=== PATIENT | male | born 1925 | race Caucasian/White ===

== ENCOUNTER 2016-08-31 22:12 | Observation (INO) | payer OTHER ==
--- NOTE | ~2016-08-31 | HP ---
History And Physical [place] [id number] [facility] [place]. [address] NAME: BOOM DUARTE : [birth year] STATUS : ADM IN [facility]#: [id number] AGE: 89 ADM/REG DATE : 09/01/16 MR#: [id number] REPORT SERV DATE: 09/01/16 DICTATED BY: GUANACO MARK DATE: 09/01/16 REPORT STATUS : Draft TRANSCRIBED BY: MODL DATE: 09/01/16 DATE OF ADMISSION: 09/01/2016 HISTORY OF PRESENT ILLNESS: This is a quite healthy 89-year-old man without prior history of bradycardia or cardiovascular disease. He developed the acute onset of nausea followed by several bouts of emesis. EMS was summoned. He felt weak. In the ambulance, he was noted to be sinus bradycardia in the 30s. There is no evidence of AV block. He was given IV fluids and observed in the intensive care unit overnight. His nausea has resolved. He has no abdominal pain. His heart rate shows sinus bradycardia in the mid 50s. He is not having any chest pain. PAST MEDICAL HISTORY: Gastroesophageal reflux disease. ALLERGIES: NO KNOWN DRUG ALLERGIES. MEDICATIONS: [id number] proton pump inhibitor. FAMILY HISTORY: There is no family history of early coronary artery disease. REVIEW OF SYSTEMS: A complete review of systems was obtained, which is negative in detail except as mentioned above in the HPI. PHYSICAL EXAMINATION: VITAL SIGNS: Blood pressure 140/70, heart rate of 60, respiratory rate of 14. GENERAL: Comfortable in no acute distress. HEENT: Anicteric. No xanthelasma. Lips without cyanosis. NECK: No JVD. Carotids 2+ and symmetric. No carotid bruits. LUNGS: CTA bilaterally. No wheezes or rhonchi. No accessory muscle use. COR: RRR. Normally placed PMI. Normal S1 and S2. No murmurs, rubs or gallops. ABD: Soft, nontender, nondistended. Normal bowel sounds. No abdominal bruits. EXT: No clubbing, cyanosis or edema 2+ and symmetric distal pulses. SKIN: Warm. Dry. No venous stasis changes. MS: No kyphosis. NEURO/PSYCH: Oriented x3. No anxiety or depression. DATA: Laboratory studies: White count of 10.5, creatinine of 1.0, potassium of 3.8. BNP of 63. Troponin of less than 0.02. EK-lead EKG shows sinus bradycardia. OR interval is normal at 172, right bundle- branch block pattern is noted. Occasional premature atrial contractions noted. IMPRESSION: Mr. Duarte is an 89-year-old man quite healthy given his age, who presents with what I think is a GI virus with nausea and vomiting and some mild dehydration. He developed bradycardia likely related to vagal influences. His bradycardia has largely resolved. He is currently asymptomatic. I have recommended discharge home and follow up with primary History And Physical [address] [address] NAME: BOOM DUARTE : [birth year] STATUS : ADM IN [facility]#: [id number] AGE: 89 ADM/REG DATE : 09/01/16 MR#: [id number] REPORT SERV DATE: 09/01/16 DICTATED BY: GUANACO MARK DATE: 09/01/16 REPORT STATUS : Draft TRANSCRIBED BY: DEE DATE: 09/01/16 care physician. ARIC/DEE Guanaco Mark M.D. / [id number] CC: Raj Camarillo M.D.
[2016-08-31 22:10] LABS: ASCORBIC ACID (UR NOT ORDER) NEG (NEG); BILIRUBIN, URINE NEGATIVE (NEG); ER URINALYSIS TAT 0 Hrs 08 Mins; KETONE, URINE TRACE MG/DL (NEG); LEUKOCYTE ESTERASE(NOT OR NEG (NEG); NITRITE (URINE) NEG (NEG); WBC (NOT ORDERED) (RFLEX) < 1 (0-5)
[2016-08-31 23:39] LABS: BASOPHILS 0.3 %; BASOPHILS ABSOLUTE 0.03 10/3/uL (0.0-0.16); EOSINOPHILS 0.3 %; EOSINOPHILS ABSOLUTE 0.03 10/3/uL (0.0-0.53); HEMATOCRIT 40.1 % (40.0-51.0); HEMOGLOBIN 13.8 g/dL (13.6-17.8); IMMATURE GRANULOCYTES 0.2 %; IMMATURE GRANULOCYTES ABSOLUTE 0.02 10/3/uL (0.0-0.11); LYMPHOCYTES 6.7 %; MEAN CORPUSCULAR HEMOGLOB 31.7 pg (26.0-34.0); MEAN PLATELET VOLUME 11.2 fL (9.2-13.0); MONOCYTES 5.2 %; MONOCYTES ABSOLUTE 0.54 10/3/uL (0.21-1.20); NEUTROPHILS 87.3 %; NEUTROPHILS ABSOLUTE 9.15 10/3/uL (2.02-8.40); PLATELET COUNT 148 10/3/uL (150-400); RBC DISTRIBUTION WIDTH 12.9 % (12.0-16.0); RED CELL COUNT 4.36 10/6/uL (4.7-6.1); WHITE BLOOD CELLS 10.5 10/3/uL (4.5-10.5)
[2016-08-31 23:40] LABS: MANUAL DIFF NO %; MEAN CORPUS HGB CONC 34.4 g/dL (32.0-36.0)
[2016-08-31 23:45] LABS: INTERNATIONAL NORMAL RATI 1.1 UNITS (-); PARTIAL THROMBO TIME 30.9 SEC (22.5-37.2); PROTIME (NOT ORD) 14.3 SEC (12.0-14.5)
[2016-09-01 00:12] LABS: ALBUMIN 3.4 G/DL (3.5-5.0); ALKALINE PHOSPHATASE 53 U/L (45-117); BUN (BLOOD UREA NITROGEN) 12 MG/DL (6-23); CALCIUM, SERUM 8.9 MG/DL (8.5-10.4); CHLORIDE, SERUM 107 MMOL/L (96-112); CO2 (CARBON DIOXIDE) 29 MMOL/L (24-34); GFR AFRICAN AMERICAN 78 ML/MIN (>=60); GFR NON AFRICAN AMERICAN 67 ML/MIN (>=60); POTASSIUM, SERUM 3.8 MMOL/L (3.5-5.3); SGOT(AST) 12 U/L (5-40); SGPT(ALT) 19 U/L (5-65); SODIUM, SERUM 142 MMOL/L (135-148); TROPONIN I <0.02 NG/ML (<0.05)
[2016-09-01 00:13] LABS: CHEST PAIN PROFILE TAT 0 Hrs 37 Mins; DIGOXIN < 0.1 NG/ML (0.8-2.0); DIRECT BILIRUBIN 0.1 MG/DL (0.0-0.4); GLUCOSE, SERUM 121 MG/DL (60-99); INDIRECT BILIRUBIN(NOT ORDER) 0.5 MG/DL (0.1-0.9); TOTAL BILIRUBIN 0.6 MG/DL (0-1.2)
[2016-09-01] MEDS ORDERED: PRILO PO (10:45)
== END 2016-09-01 13:00 | disposition home or self-care (01) ==
LOC: ER 22:12 → CVICU 09-01 00:45
PROVIDERS: Emergency Medicine
DX: R11.2 Nausea with vomiting, unspecified (principal); K21.9 Gastro-esophageal reflux disease without esophagitis; Z79.899 Other long term (current) drug therapy; E86.0 Dehydration; J44.9 Chronic obstructive pulmonary disease, unspecified; J45.909 Unspecified asthma, uncomplicated; Z90.49 Acquired absence of other specified parts of digestive tract; E11.9 Type 2 diabetes mellitus without complications; Z98.890 Other specified postprocedural states; I10 Essential (primary) hypertension; E78.00 Pure hypercholesterolemia, unspecified; G62.9 Polyneuropathy, unspecified
CPT/HCPCS: 71010; 80048; 80076; 80162; 81001; 83735; 83880; 84484; 85025; 85610; 85730; 87641; 93005; 96374; 99291; G0378; J2405